=== PATIENT | female | born 1990 | race Caucasian/White ===

== ENCOUNTER 2021-03-05 16:52 | Inpatient (IN) | payer OTHER ==
[~2021-03-05] VITALS: Ht 152.4 cm; Wt 73.9 kg
[~2021-03-05 16:52] MED LIST: PRENATAL VITAM1 EAC8 PO; SYNTHROID25 MCG PO
[2021-03-05] MEDS ORDERED: VITAMIN D 40400 UNIT PO (17:55)
[2021-03-05] MEDS ORDERED: PRENATABS FA T1 EACH PO (17:56)
[2021-03-05 18:33] LABS: HEMOGLOBIN 9.6 gm/dl (12.3-15.3); RED BLOOD COUNT 3.68 M/UL (4.00-5.10); WHITE BLOOD COUNT 5.6 K/UL (4.5-11.0)
[2021-03-06 06:13] LABS: HEMOGLOBIN 9.4 gm/dl (12.3-15.3); RED BLOOD COUNT 3.59 M/UL (4.00-5.10); WHITE BLOOD COUNT 6.2 K/UL (4.5-11.0)
[2021-03-06] MEDS ORDERED: IBUPROFEN600 MG PO (18:36)
[2021-03-06] MEDS ORDERED: DOCUSATE SODIU250 MG PO (18:36)
[2021-03-06] MEDS ORDERED: HYDROCODONE-AC1 EACH PO (18:36)
[2021-03-06] MEDS ORDERED: FEROSUL325 MG PO (18:36)
[2021-03-07 06:57] LABS: HEMOGLOBIN 7.9 gm/dl (12.3-15.3)
== END 2021-03-08 14:42 | disposition home or self-care (01) | DRG 807 ==
LOC: GENOP 16:52 → OB 17:00
PROVIDERS: Obstetrics & Gynecology; ADMIT Obstetrics & Gynecology
PROC: 0U7C7ZZ Dilation of Cervix, Via Natural or Artificial Opening (ICD-10-PCS; principal; 2021-03-05)
PROC: 4A1HX4Z Monitoring of Products of Conception, Cardiac Electrical Activity, External Approach (ICD-10-PCS; 2021-03-05)
PROC: 10E0XZZ Delivery of Products of Conception, External Approach (ICD-10-PCS; 2021-03-06)
PROC: 0KQM0ZZ Repair Perineum Muscle, Open Approach (ICD-10-PCS; 2021-03-06)
PROC: 10907ZC Drainage of Amniotic Fluid, Therapeutic from Products of Conception, Via Natural or Artificial Opening (ICD-10-PCS; 2021-03-06)
DX: O24.429 Gestational diabetes mellitus in childbirth, unspecified control (principal); Z37.0 Single live birth; Z3A.39 39 weeks gestation of pregnancy; O70.1 Second degree perineal laceration during delivery; Z20.822 Contact with and (suspected) exposure to COVID-19
CPT/HCPCS: 36415; 51702; 81001; 82800; 82962; 85014; 85018; 85025; 90471; 90715; J2405; J2795; J3010; J7030; J7120; U0002